=== PATIENT | male | born 1990 | race American Indian/Alaskan Native ===

== ENCOUNTER 2018-06-17 18:58 | Emergency (ER) | payer OTHER ==
--- NOTE | 2018-06-17 19:38 | XRAY Report ---
Reason: injury Procedure Date: 06/17/2018 Accession Number: [id number] / [id number] Procedure: XR - Wrist 2 View LT CPT Code: FULL RESULT: EXAM: LEFT WRIST RADIOGRAPHY EXAM DATE: 06/17/2018 07:20 PM. CLINICAL HISTORY: Injury. Fall on outstretched hand. COMPARISON: None. TECHNIQUE: 2 views. FINDINGS: Bones: Normal. No fractures or bone lesions. Joints: Normal. No subluxations. Soft Tissues: Minimal dorsal soft tissue swelling. IMPRESSION: No fracture or malalignment is identified at the left wrist. RADIA
[2018-06-17 21:02] VITALS: BP 134/87
[2018-06-17] MEDS ORDERED: NAPROXEN 250 MG TABLET PO STA (21:40)
--- NOTE | 2018-06-17 21:42 | ED Physician Documentation ---
PD HPI UPPER EXT INJURY - Stated complaint Stated Complaint: LT ARM INJURY - Chief complaint Chief Complaint: Trauma Ext - History obtained from History obtained from: Patient - History of Present Illness Location: Left, Wrist Type of injury: Fall, Blunt / blow Timing - onset: Today Timing - details: Abrupt onset Severity Comments: moderate Improved by: Rest, Ice, Immobilization Worsened by: Moving Associated symptoms: Swelling Contributing factors: No: Anticoagulated Similar symptoms before: Diagnosis Recently seen: Not recently seen Review of Systems Constitutional: denies: Fever Nose: denies: Congestion Throat: denies: Sore throat Cardiac: denies: Chest pain / pressure GI: denies: Abdominal Pain Musculoskeletal: reports: Extremity pain. denies: Neck pain, Back pain Neurologic: denies: Generalized weakness PD PAST MEDICAL HISTORY - Past Medical History Past Medical History: Yes - Past Surgical History Past Surgical History: Yes - Present Medications Home Medications: Ambulatory Orders Medication Instructions Recorded Confirmed Naproxen 500 mg PO BID PRN #60 tablet 06/17/18 - Allergies Allergies/Adverse Reactions: Allergies Allergy/AdvReac Type Severity Reaction Status Date / Time No Known Drug Allergies Allergy Verified 06/17/18 19:09 - Social History Does the pt smoke?: Yes Smoking Status: Current every day smoker Does the pt drink ETOH?: Yes Does the pt have substance abuse?: No - Immunizations Immunizations are current?: Yes - POLST Patient has POLST: No PD ED PE NORMAL - General General: Alert and oriented X 3, No acute distress - HEENT HEENT: Atraumatic, PERRL - Derm Derm: Normal color - Extremities Extremities: No deformity. No: No tenderness to palpate (Tenderness palpation of the left wrist, there is no snuffbox tenderness. There is no tenderness in the left hand or left elbow or shoulder. Normal range of motion. Normal radial pulse. Normal cap refill. No crepitus) - Neuro Neuro: Alert and oriented X 3, Normal speech - Psych Psych: Normal affect Results - Vitals Vitals: Vital Signs - 24 hr 06/17/18 06/17/18 19:05 21:01 Temperature 36.8 C 36.7 C Heart Rate 72 52 L Respiratory 16 15 Rate Blood Pressure 120/78 134/87 H O2 Saturation 97 99 Oxygen O2 Source Room air - Rads (name of study) XR wrist Radiology: Final report received (no fx), See rad report PD MEDICAL DECISION MAKING - ED course ED course: No acute fracture, the patient be splinted and will follow up with Primary care for recheck, the patient may require further imaging and possibly referral to orthopedics from primary care. The patient will return to the emergency department for any worsening or any concerns Departure - Departure Disposition: 01 Home, Self Care Clinical Impression: Wrist sprain Qualifiers: Encounter type: initial encounter Laterality: unspecified laterality Qualified Code(s): S63.509A - Unspecified sprain of unspecified wrist, initial encounter Condition: Good Instructions: Wrist Sprain Follow-Up: [facility] [Provider Group] - Within 1 week (If your symptoms are not improving you may need a repeat x-ray, possibly an outpatient MRI and possibly referral to orthopedics) Prescriptions: Naproxen 500 mg PO BID PRN #60 tablet PRN Reason: Pain Comments: Please return to the emergency department for worsening symptoms or any concerns
== END 2018-06-17 22:00 | disposition home or self-care (01) ==
LOC: ED 18:58
DX: S63.502A Unspecified sprain of left wrist, initial encounter (principal); W01.0XXA Fall on same level from slipping, tripping and stumbling without subsequent striking against object, initial encounter; Y93.66 Activity, soccer; Y92.322 Soccer field as the place of occurrence of the external cause; F17.200 Nicotine dependence, unspecified, uncomplicated
CPT/HCPCS: 73100; 99283; A9270